=== PATIENT | male | born 2000 | race Caucasian/White ===

== ENCOUNTER 2021-06-22 08:25 | Emergency (ER) | payer BC ==
[~2021-06-22] VITALS: Ht 180.3 cm; Wt 72.1 kg
[2021-06-22 08:41] VITALS: BP 147/88
--- NOTE | 2021-06-22 10:24 | NUR ---
GLOBAL HUMAN RESOURCES DIRECTOR: PT TO ROOM FROM BRITTNI FRANCIS
[2021-06-22] MEDS ORDERED: AMOXICILLIN/CLAV 875-125MG TABLET PO ONE (11:00)
[2021-06-22] MEDS ORDERED: AMOXICILLIN/CLAV 875-125MG TABLET ONE (11:13)
--- NOTE | 2021-06-22 11:18 | NUR ---
PT TO ROOM 28 W/ C/O R UPPER DENTAL PAIN AND SWELLING. PT STATES IT STARTED YESTERDAY AND WORSENED THROUGHOUT THE NIGHT. PT BELIEVES HE HAS CAVITIIES TO THAT AREA. DOES NOT HAVE A DENTIST. PT RESTING ON [facility]. [facility].
== END 2021-06-22 11:24 | disposition home or self-care (01) ==
LOC: ED 11:20
DX: K08.89 Other specified disorders of teeth and supporting structures (principal)
CPT/HCPCS: 99283